=== PATIENT | female | born 1990 | race Caucasian/White ===

== ENCOUNTER 2017-05-05 22:39 | Emergency (ER) | payer OTHER ==
[~2017-05-05] VITALS: Ht 172.7 cm; Wt 168.7 kg
--- NOTE | ~2017-05-05 | EKG ---
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
[2017-05-05] MEDS ORDERED: XANAX 0.25 MG0.25 MG (22:52)
[2017-05-05] MEDS ORDERED: BUSPIRONE HCL10 MG (22:52)
[2017-05-06 00:21] LABS: HEMATOCRIT 41.9 % (37.0-47.0); HEMOGLOBIN 14.1 gm/dL (12.0-15.0); MCH 29.5 pg (26.0-34.0); MCHC 33.6 g/dL (28.0-37.0); RBC 4.76 mil/uL (4.20-5.00); RDW 13.6 % (10.5-14.5)
[2017-05-06 01:08] LABS: ANION GAP 12 mmol/L (7-16); BUN 16 mg/dL (7-18); CALCIUM 9.2 mg/dL (8.5-10.1); CHLORIDE 104 mmol/L (98-107); CO2 23 mmol/L (21-32); CREATININE 0.8 mg/dL (0.6-1.0); GLUCOSE 103 mg/dL (74-106); SODIUM 139 mmol/L (136-145)
[2017-05-06 01:19] LABS: ALBUMIN 3.6 g/dL (3.4-5.0); SGOT 9 U/L (15-37); SGPT 22 U/L (30-65); TOTAL BILIRUBIN 0.2 mg/dL (<0.1-1.0); TOTAL PROTEIN 7.3 g/dL (6.4-8.2); TROPONIN-I < 0.04 ng/mL (<0.06)
== END 2017-05-06 01:47 | disposition home or self-care (01) ==
LOC: ER 22:39
PROVIDERS: Emergency Medicine
DX: R04.2 Hemoptysis (principal); I10 Essential (primary) hypertension